=== PATIENT | female | born 1985 | race Two or more races ===

== ENCOUNTER 2024-06-26 23:35 | Emergency (ER) | payer BC, OTHER ==
[~2024-06-26] VITALS: Ht 172.7 cm; Wt 59.0 kg
[2024-06-26 23:43] VITALS: BP 122/78; TEMP 98.6; O2SAT 99
[2024-06-27] MEDS ORDERED: KETO10TA2 PO (00:36)
[2024-06-27] MEDS ORDERED: KETOROLAC TROMETHAMINE INJ 30 MG/ML VIAL ONE (00:41)
[2024-06-27] MEDS: KETOROLAC TROMETHAMINE INJ 60 MG/2 ML VIAL IM ONE (00:45)
== END 2024-06-27 00:57 | disposition home or self-care (01) ==
LOC: ER 23:37
DX: G89.18 Other acute postprocedural pain (principal); N64.4 Mastodynia; Z98.82 Breast implant status; Z60.2 Problems related to living alone
CPT/HCPCS: 99283; 96372; J1885

== ENCOUNTER 2025-04-05 00:09 | Emergency (ER) | payer BC ==
[~2025-04-05] VITALS: Ht 172.7 cm; Wt 74.8 kg
[~2025-04-05 00:09] MED LIST: KETO10TA2 PO
[2025-04-05] MEDS ORDERED: AMOX/CLAVULANATE 875 MG TABLET ONE (00:42)
[2025-04-05] MEDS ORDERED: TDAP [DIPH/PERTUSSIS/TET] 0.5 ML VIAL IM ONE (00:42)
[2025-04-05] MEDS ORDERED: AMOX-430 PO (00:43)
[2025-04-05] MEDS: TDAP [DIPH/PERTUSSIS/TET] 0.5 ML VIAL IM ONE (00:47)
[2025-04-05] MEDS: AMOX/CLAVULANATE 875 MG TABLET PO ONE (00:47)
[2025-04-05 01:09] VITALS: BP 112/70; TEMP 97.7; O2SAT 96
== END 2025-04-05 01:10 | disposition home or self-care (01) ==
LOC: ER 00:13
DX: S91.331A Puncture wound without foreign body, right foot, initial encounter (principal); E03.9 Hypothyroidism, unspecified; J45.909 Unspecified asthma, uncomplicated; Z60.2 Problems related to living alone; W25.XXXA Contact with sharp glass, initial encounter; Y93.89 Activity, other specified; Y92.89 Other specified places as the place of occurrence of the external cause; Y99.8 Other external cause status
CPT/HCPCS: 73630-TC; 90715